=== PATIENT | female | born 1985 | race Caucasian/White ===

== ENCOUNTER 2020-07-04 09:59 | Inpatient (IN) | payer OTHER ==
[2020-07-04] MEDS ORDERED: Lanolin Ointment 7 GM TUBE TOP PRN (10:26)
[2020-07-04] MEDS ORDERED: Benzocaine-Menthol 82.5 ML CAN TOP PRN (10:26)
[2020-07-04] MEDS ORDERED: hydrALAZINE 20 MG/ML VIAL SLOW IVP PRN (10:26)
[2020-07-04] MEDS ORDERED: Milk Of Magnesia 30 ML UDCUP PO PRN (10:26)
[2020-07-04] MEDS ORDERED: HYDROcodone/Acetaminophen 5/325 mg Tablet PO PRN ×2 (10:26)
[2020-07-04] MEDS ORDERED: Bisacodyl 10 MG SUPP PR PRN (10:26)
--- NOTE | 2020-07-04 10:26 | PDOC.BPN ---
- Brief Progress Note Felicia BARR Faculty Interim Accept note L&D note ED provider just gave me report on the phone for this patient, still in ED. She was seeing a provider at [facility]. EGA approx 32 weeks 34yo s/p delivery at home this am about 1 hr ago...baby here and stable. Placenta also has delievered. She is stable. She will come to L&D for care and eval. Physical (per ED MD): NAD Vitals stable No VB Abd soft Assessment and plan: 32 weeks s/p home delivery, not s/p placental delivery To L&D for PP care
[2020-07-04] MEDS ORDERED: NS / Oxytocin 40 units/1000ml 1,000 ML IV SCH (10:30)
[2020-07-04 10:36] VITALS: BMI 31.6
[2020-07-04] MEDS ORDERED: FLU VACC QS2020-21(6MOS UP)/PF 60 MCG/0.5 ML SYRINGE IM ONE (10:45)
[2020-07-04] MEDS ORDERED: Lidocaine 1% (PF) 30 ML VIAL ONE (10:52)
[2020-07-04 11:17] LABS: Amphetamine Detected (NotDetected); Barbiturates Screen Not Detected (NotDetected); Benzodiazepine Screen Detected (NotDetected); Cocaine Metabolite Screen Not Detected (NotDetected); Medtox Control Line Valid? VALID (VALID); Medtox Reader # READER 4; Methadone Not Detected (NotDetected); Methamphetamine Detected (NotDetected); Opiate Screen Not Detected (NotDetected); Oxycodone Screen Not Detected (NotDetected); Phencyclidine (PCP) Not Detected (NotDetected); THC/Cannabinoid Screen Detected (NotDetected); Tricyclic Screen Not Detected (NotDetected)
--- NOTE | 2020-07-04 11:23 | PDOC.BPN ---
- Brief Progress Note Labs: Pos for meth, ampet, benzos, and cannabis NBN aware by me. Triggers a case management eval.
--- NOTE | 2020-07-04 11:31 | HP ---
TIME OF EVALUATION: Roughly 1045. CHIEF COMPLAINT: The patient delivered at home roughly at 0830 this morning and placenta has delivered. The patient states she is a patient of Dr. Harding, although she is not in Dr. Harding's system by verbal communication with that physician. HISTORY OF PRESENT ILLNESS: This is a 34-year-old, G3, P2, with 2 previous term deliveries by her report. We do not have her record here. She states that she delivered around 0830 this morning, and the placenta delivered about 10 minutes ago. She was first evaluated by the ER and then has been transferred to Labor and Delivery. She does not have any further active vaginal bleeding right now. She denies any other issues this , although she does have a history of "blood clots in her legs and lungs" in the past when [place]. REVIEW OF SYSTEMS: The patient states no other complications so far. PAST OB HISTORY: Significant for previous vaginal deliveries at term. It is important to note that the patient's history is difficult as she is somewhat somnolent, and I suspect she may be under some illicit substance. PAST SURGICAL HISTORY: In 2014, she had a percutaneous nephrostomy tube for a "abscess" on the left side. ALLERGIES: CODEINE. SOCIAL HISTORY: The patient smokes cigarettes every day and denies alcohol or drug use. Social history is positive for marijuana, and she states that she last used last night. PHYSICAL EXAMINATION: VITAL SIGNS: Are actually pending. She just arrived to Labor and Delivery. GENERAL: She is somewhat somnolent and appears to be under the influence of some substance. ABDOMEN: Otherwise soft and nontender. PELVIC: On perineal examination, there is no active vaginal bleeding, and I do see what looks like a laceration, but because of the bed she was in, I am awaiting transfer to a lithotomy/Stirrup/footrest bed, so we can properly evaluate. LABS ORDERED: I have ordered routine labs and OB admission labs. ASSESSMENT: This is a patient who is now about 2-1/2 hours or so at a stated gestational age of about 32 weeks. She states that she sees Dr. Harding, although Dr. Harding is not familiar with this patient by direct communication with him. PLAN: 1. Urine tox ordered due to her somewhat altered mental status. 2. Full vital signs. 3. Type and Rh, HIV, hepatitis B surface antigen, hepatitis C. 4. We will put the patient in lithotomy for perineal examination and likely repair of the laceration. 5. Baby is stable and being evaluated by the nursery team. 6. 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 We will start this at 6 hours , which is roughly about 1400 today. This will be 30 mg subcutaneous daily in accordance with ACOG guidelines. I did discuss this with her, and I did recommend that she follow that medication through for 6 weeks. Job ID: [id number] [facility]
--- NOTE | 2020-07-04 11:49 | PRG ---
DATE OF SERVICE: 07/04/2020 Approx. 1115 VAGINAL DELIVERY LACERATION REPAIR AND H AND P ADDENDUM: H&P Addendum: In brief, this patient, we now have a little bit more history from her. The baby's weight was about 8 pounds and based on her stated the EDC of around July 24 or so, puts the baby at around 37 weeks. So, this patient was likely term and not at 32 weeks. Again, I do not have any records here and I am getting this history from the patient who may be slightly altered. The patient states her DVT was on depoprovera in 2018 and used lovenox then VAGINAL DELIVERY LACERATION REPAIR: 1. In brief, me and Mechelle Ko (M3) evaluated the patient when she was placed on a lithotomy bed and her feet were supported in foot rests. I find the patient to have a first to second-degree stellar laceration in the perineum. I injected a total of 9 mL of 1% lidocaine without epinephrine. Then using 2-0 Vicryl, I closed the stellar laceration in the typical fashion. This was used with one continuous running nonlocking stitch in the perineal body and the lacerated skin edges came together within normal limits. My EBL was minimum. There was about 100 mL of blood on the Chux pad as we did the procedure. There was no further vaginal bleeding noted. I do not have an EBL or QBL because we intervened way after the delivery point. It is my assessment that so far we had about 100 mL on the Chux pad. 2. Baby is doing well in the nursery and has been evaluated by those physicians. 3. I did explain to the patient that we will start Lovenox at 6 hours from delivery rather than 12, not knowing any of her history. We will likely send the patient home tomorrow, but we are awaiting her typical labs at this time. LABORATORY ASSESSMENT: The patient is positive for cannabinoids, benzodiazepines, amphetamines, and methamphetamines. We will relay this to the nursery team as well. Job ID: [id number] [facility]
[2020-07-04 14:03] LABS: Hemoglobin 11.7 g/dL (12.0-16.0); Mean Corpuscular HGB CONC 34.7 g/dL (32.0-36.0); Mean Corpuscular Hemoglobin 30.8 pg (27.0-31.0); Mean Corpuscular Volume 88.5 fL (78.0-98.0); Mean Platelet Volume 7.3 fL (7.4-10.4); Platelet Count 218 thou/uL (130-400); RBC Distribution Width 12.2 % (11.5-14.5); Red Blood Cell (RBC) Count 3.81 mill/uL (4.20-5.40); White Blood Cell (WBC) Count 20.3 thou/uL (4.8-10.8)
[2020-07-04] MEDS: Ibuprofen 800 MG TAB PO SCH ×2 (14:20→20:32)
[2020-07-04 14:31] LABS: Band 44 % (5-11); Lymphocytes 4 % (21-51); MDiff Complete? YES; Monocytes 5 % (0-10); Neutrophil 43 % (42-75); Platelet Morphology Comment Appears Adequate; Polychromasia SLIGHT = 2-3 cells (100X) (0-2/hpf); Reactive Lymphocytes 4 % (0-10); Reflex for Review?? YES
[2020-07-04 14:36] LABS: HIV (1/2) Antibody/Antigen Non-Reactive (NonReactive); HIV 1/2 INDEX 0.08 S/CO (<1.00); Hep B Surf Ag Non-Reactive S/CO (NonReactive); Hep C IgG Ab Non-Reactive (NonReactive); Hep C Index 0.07 S/CO (0-0.79); Syphilis Antibody Nonreactive (Nonreactive); Syphilis Antibody Index 0.03 S/CO (<1.00 Non-Reactive)
[2020-07-04 15:47] LABS: SARS-CoV-2 MS2 Positive; SARS-CoV-2 N Gene Negative; SARS-CoV-2 S Gene Negative; SARS-CoV-2 by NAA Not Detected (NotDetected); SARS-CoV-2 orf1ab Negative
[2020-07-04] MEDS: Ferrous Sulfate 325 MG TAB PO SCH (16:04)
[2020-07-04] MEDS ORDERED: Enoxaparin Sodium 30 MG/0.3 ML SYRINGE SC SCH ×2 (20:00)
[2020-07-04] MEDS: Docusate Calcium (SURFAK) 240 MG CAP PO SCH (20:31)
[2020-07-05] MEDS: Ibuprofen 800 MG TAB PO SCH (05:32)
--- NOTE | 2020-07-05 06:06 | PDOC.BPN ---
- Brief Progress Note Discharge note: Patient seen by me. BRIANDA for DC home on lovenox. See DISCHARGE dictation. Vitals reviewed.
--- NOTE | 2020-07-05 06:36 | DIS ---
DATE OF ADMISSION: 07/04/2020 DATE OF DISCHARGE: 07/05/2020 PRINCIPAL DIAGNOSES: 1. Methamphetamine abuse. 2. Amphetamine abuse. 3. Vaginal delivery at home. 4. Obstetrical laceration repair. 5. Positive for benzodiazepines and marijuana. HOSPITAL COURSE: In brief, this patient was admitted on July 04, 2020 in the morning after she arrived to the ER after delivery at home with a vigorous and the placenta had delivered as well. We brought her up to Labor and Delivery and due to her having altered mental status, we got a urine toxicology screen. They were returned positive for amphetamines, methamphetamines, benzodiazepines, and marijuana. She had delivered at home and by her account was about 38 weeks. The baby was vigorous and was examined by the nursery team. The baby went to nursery. The patient had a second-degree stellar laceration in the perineum, which was repaired under local anesthesia. The patient does have a history of DVT by her account when she was on Depo-Provera. I do not have the details of that, but because I do not have any other information, I recommended that she continue Lovenox 30 mg subcu daily and we started this 6 hours . I put in a prescription to continue with her Lovenox and for her to follow up with her provider in 1 week. She voiced understanding. The positive drug screen did trigger a Case Management evaluation. DISCHARGE MEDICATIONS: Include Motrin p.r.n. and the Lovenox 30 mg subcu every day for 6 weeks. Job ID: [id number]
[2020-07-05 07:08] LABS: Hemoglobin 10.6 g/dL (12.0-16.0)
[2020-07-05] MEDS: Ferrous Sulfate 325 MG TAB PO SCH (07:47)
[2020-07-05 07:54] VITALS: BP 111/69; TEMP 98.3
[2020-07-05] MEDS: Docusate Calcium (SURFAK) 240 MG CAP PO SCH (09:30)
[2020-07-05] MEDS ORDERED: Measles/Mumps/Rubella 10 MCG/0.5 ML VIAL SC ONE (10:26)
[2020-07-05] MEDS ORDERED: Adacel (T-DAP) 0.5 ML SYRINGE IM ONE (10:26)
== END 2020-07-05 11:25 | disposition home or self-care (01) | DRG 769 ==
LOC: ERS 09:59 → L&D-LIB 10:16 → 3SW 13:51
PROVIDERS: ADMIT Obstetrics & Gynecology; ATTEND Obstetrics & Gynecology
PROC: 0KQM0ZZ Repair Perineum Muscle, Open Approach (ICD-10-PCS; principal; 2020-07-05)
DX: O99.335 Smoking (tobacco) complicating the puerperium (principal); O99.345 Other mental disorders complicating the puerperium; O99.325 Drug use complicating the puerperium; M54.10 Radiculopathy, site unspecified; F32.9 Major depressive disorder, single episode, unspecified; F53.0 Postpartum depression; F17.210 Nicotine dependence, cigarettes, uncomplicated; F15.10 Other stimulant abuse, uncomplicated; F12.10 Cannabis abuse, uncomplicated; Z20.828 Contact with and (suspected) exposure to other viral communicable diseases; Z88.5 Allergy status to narcotic agent
CPT/HCPCS: 36415; 80306; 85014; 85018; 85025; 85060; 86780; 86803; 86900; 86901; 87340; 87389; 87635; 99284; 99285; J1650; U0003